=== PATIENT | female | born 1990 | race African-American/Black ===

== ENCOUNTER 2021-09-28 11:43 | Emergency (ER) | payer BC ==
[~2021-09-28] VITALS: Ht 175.3 cm; Wt 61.0 kg
[2021-09-28] MEDS ORDERED: ONDANSETRON HCL 4MG/2ML INJ IV ONE (12:00)
[2021-09-28] MEDS ORDERED: KETOROLAC 15MG/ML VIAL IV ONE (12:15)
[2021-09-28 12:43] LABS: HEMATOCRIT. 41.3 % (36.0-48.0); HEMOGLOBIN. 13.9 g/dL (12.0-16.0); MEAN CORPUSCULAR HEMOGLOBIN 30.5 pg (28.0-32.0); MEAN CORPUSCULAR VOLUME 90.6 fL (81.0-99.0); MEAN PLATELET VOLUME 8.8 fl (7.4-10.4); PLATELET 169 x1000/uL (130-400); RED BLOOD CELL COUNT 4.56 mill/uL (4.2-5.4); RED CELL DISTRIBUTION WIDTH 13.5 % (11.6-14.6)
[2021-09-28 12:47] LABS: CHLORIDE 108 mEq/L (98-107)
[2021-09-28 12:58] LABS: B-HCG QUANTITATIVE < 1 mIU/mL (<3)
[2021-09-28 13:22] LABS: PLATELET ESTIMATE NORMAL
[2021-09-28 13:33] LABS: CLARITY URINE CLEAR (CLEAR); COLOR URINE YELLOW (YELLOW); KETONES URINE NEGATIVE (NEGATIVE); LEUKOCYTE ESTERASE URINE NEGATIVE (NEGATIVE); NITRITE URINE NEGATIVE (NEGATIVE); OCCULT BLOOD URINE 2+ (NEGATIVE); PROTEIN URINE NEGATIVE (NEGATIVE); SPECIFIC GRAVITY URINE 1.009 (1.005-1.030); UROBILINOGEN URINE 0.2 E.U./dL (0.2-1.0)
[2021-09-28 15:00] VITALS: BP 103/57
== END 2021-09-28 18:09 | disposition home or self-care (01) ==
LOC: ER 11:43
DX: N93.8 Other specified abnormal uterine and vaginal bleeding (principal); Z88.0 Allergy status to penicillin
CPT/HCPCS: 36415; 76830; 76856; 80053; 81003; 81025; 84702; 85025; 86850; 86900; 86901; 96374; 96375; 99284; J1885; J2405